=== PATIENT | male | born 1955 | race Caucasian/White ===

== ENCOUNTER → 2017-09-01 | Outpatient (CLI) | payer OTHER ==
[2017-02-28 14:01] VITALS: BMI 38.6
[~2017-09-01] MED LIST: AMLO-99 PO; APIX2.5T PO; ASPI-1471 PO; ATOR40TA24 PO; CARV25TA78 PO; FURO-45 PO; FURO40TA35 PO; HYDR-2966 PO; ISOS30TA51 PO; LISI2.5T60 PO; LOSA100T67 PO; METO-259 PO; NO MEDS
--- NOTE | 2017-09-01 18:34 | RADIOLOGY IMAGING REPORT ---
FACILITY: [facility] PATIENT NAME: Darrion Smith : 1955 MR: [id number] V: [id number] EXAM DATE: ORDERING PHYSICIAN: RYAN HAN [place]CHNOLOG[place] [facility] [place] D[place]ion [place] : 1955 Visit/Account:[id number] Date of Sevice: 09/01/2017 EXAMINATION: Single Isotope SPECT Imaging with Exercise and Gated SPECT Imaging DATE OF EXAMINATION: September 01, 2017 DATE OF INTERPRETATION: September 01, 2017 REQUESTING PHYSICIAN: RYAN HAN INDICATION: The patient is a 61-year-old female evaluated for CAD. PROCEDURE: After informed consent the patient received an intravenous injection of 12.1 mCi of Tc-9 9m sestamibi followed at the appropriate time interval by rest imaging. The patient then exercised a ccording to the standard Baljit protocol for 5 minutes achieving 7 METS. Resting heart rate was 74 bp m with a peak heart rate of 144 bpm which is 92 % of maximal predicted heart rate for age. Blood pr essure at rest was 157 / 86; blood pressure during exercise was 202 / 88. There was no chest pain du ring exercise. Exercise was discontinued because of completing the protocol. Baseline EKG demonstra lucero normal sinus rhythm with lateral T-wave inversion. There were no diagnostic EKG changes of ische keesha at peak exercise. Approximately one minute and 30 seconds prior to the termination of exercise, the patient received an intravenous injection of 29.4 mCi of Tc-99m sestamibi followed by stress imag ing. RAW DATA: Examination of the summed raw data revealed a fair quality study. MYOCARDIAL PERFUSION: The tomographic images demonstrate an inferior defect at rest that is improved with stress. This is likely an attenuation artifact. No significant ischemia or infarction is suspec belkys.. GATED IMAGES: The gated images demonstrate a normal ejection fraction at 65%. There are no segmental wall motion abnormalities IMPRESSION: 1. Baseline EKG shows normal sinus rhythm with lateral T-wave inversion. There is no reported chest pain and no diagnostic EKG changes during stress. 2. Probably normal myocardial perfusion scan. 3. Normal LV systolic function; LVEF 65%. 4. Based on the results of this exam, the patient appears to be at low risk for future cardiovascular events. Report Dictated By: Yan Calloway MD at 09/01/2017 6:26 PM Report E-Signed By: Yan Calloway MD at 09/01/2017 6:29 PM WSN:[id number]
== END ==
LOC: NUC 01:19
PROVIDERS: ATTEND Internal Medicine Cardiovascular Disease
DX: I25.10 Atherosclerotic heart disease of native coronary artery without angina pectoris (principal); I48.0 Paroxysmal atrial fibrillation; R07.89 Other chest pain
CPT/HCPCS: 78452; 93017; A9500

== ENCOUNTER → 2018-10-07 | Outpatient (CLI) | payer OTHER ==
[2017-02-28 14:01] VITALS: BMI 38.6
[~2018-10-07] MED LIST changes: +AMLO-127 PO; -AMLO-99 PO; -LOSA100T67 PO; +LOSA100T75 PO
[2018-10-07 08:12] LABS: LDL CHOLESTEROL 77 mg/dl
== END ==
LOC: LAB 06:42
PROVIDERS: ATTEND Internal Medicine Cardiovascular Disease
DX: I51.7 Cardiomegaly (principal); I10 Essential (primary) hypertension; I25.10 Atherosclerotic heart disease of native coronary artery without angina pectoris
CPT/HCPCS: 36415; 82040; 82247; 82310; 82374; 82435; 82465; 82565; 82947; 83036; 83718; 84075; 84132; 84155; 84295; 84450; 84460; 84478; 84520